=== PATIENT | female | born 1985 | race Asian ===

== ENCOUNTER 2019-10-26 19:29 | Emergency (ER) | payer BC ==
[~2019-10-26] VITALS: Ht 162.6 cm; Wt 49.9 kg
[2019-10-26 19:29] VITALS: BP 108/65
--- NOTE | 2019-10-26 19:31 | NUR ---
ED Nurse Note: Patient was BIBA from home due to flu like symptoms, headache, sore throat, fever. Patient temp 99.8 at triage. Patient presented calm, AAO x4, VSS at this time.
--- NOTE | 2019-10-26 19:54 | Emergency Room Report ---
History of Present Illness General Chief Complaint: Flu Like Symptoms Source: Patient Present Illness HPI 33-year-old female presents to the emergency department concern for worsening fevers and generalized body aches after finishing course of antibiotics with no improvement of her symptoms. Initial symptoms were dysuria and bladder pressure. Was placed onto oral abx: Macrobid. Patient states that her dysuria resolved however she then began having 8/10 in severity body aches and high fevers of 102 for example. Pt .then was rx'd Ciprofloxacin. Pt. was concerned, called her PMD whom told her not to start the Cipro but to report to ED for evaluation. Pt. reports slight cough. Denies ST, Neck pain or stiffness. She reports having a dull 4/10 in severity generalized FIGUEROA. Denies N/V/C. She states that early last week she did have one episode of diarrhea that was isolated and did not return. She has been taking Tylenol and Motrin every 4 hours for fevers. She denies recent travel or ill contacts. Patient states she did not receive this years flu vaccine. Denies abdominal pain or tenderness. She reports severe weakness and fatigue. Allergies: Coded Allergies: GENTAMICIN (Verified Allergy, Mild, 10/26/19) Patient History Past Medical History: see triage record Past Surgical History: none Pertinent Family History: none Now: No Reviewed Nursing Documentation: PMH: Agreed; PSxH: Agreed Nursing Documentation-PMH Past Medical History: No Stated History Review of Systems All Other Systems: negative except mentioned in HPI Physical Exam Vital Signs Date Time Temp Pulse Resp B/P (MAP) Pulse Ox O2 Delivery O2 Flow Rate FiO2 10/26/19 19:11 99.0 72 16 108/65 (79) 99 Room Air Sp02 EP Interpretation: reviewed, normal General Appearance: alert, GCS 15, non-toxic, mild distress, lethargic, thin Head: normocephalic, atraumatic Eyes: bilateral eye normal inspection, bilateral eye PERRL ENT: hearing grossly normal, normal voice Neck: full range of motion, no meningismus, no bony tend Respiratory: chest non-tender, lungs clear, normal breath sounds, no respiratory distress, no wheezing, speaking full sentences Cardiovascular #1: regular rate, rhythm, normal capillary refill Gastrointestinal: normal bowel sounds, non tender, soft, non-distended, no guarding, other Genitourinary: normal inspection, no CVA tenderness Musculoskeletal: back normal, normal range of motion, non-tender, other - Pt. is too weak to walk without assistance Neurologic: alert, motor strength/tone normal, oriented x3, sensory intact, responsive, speech normal Psychiatric: judgement/insight normal Skin: no rash, normal color Medical Decision Making PA Attestation Dr. Pinto is my supervising Physician whom patient management has been discussed with. Diagnostic Impression: Primary Impression: Acute viral syndrome Additional Impression: Fever and chills ER Course 33-year-old female presents to the emergency department concern for worsening fevers and generalized body aches after finishing course of antibiotics with no improvement of her symptoms. Initial symptoms were dysuria and bladder pressure. Was placed onto oral abx: Macrobid. Patient states that her dysuria resolved however she then began having 8/10 in severity body aches and high fevers of 102 for example. Pt .then was rx'd Ciprofloxacin. Pt. was concerned, called her PMD whom told her not to start the Cipro but to report to ED for evaluation. Pt. reports slight cough. Denies ST, Neck pain or stiffness. She reports having a dull 4/10 in severity generalized FIGUEROA. Denies N/V/C. She states that early last week she did have one episode of diarrhea that was isolated and did not return. She has been taking Tylenol and Motrin every 4 hours for fevers. She denies recent travel or ill contacts. Patient states she did not receive this years flu vaccine. Denies abdominal pain or tenderness. She reports severe weakness and fatigue. Ddx considered but are not limited to URI, pneumonia, PE, strep pharyngitis, meningitis, influenza, OM/OE just to name a few, UTI pyelonephritis, meningitis/ encephalitis just to name a few Vital signs: Pt. is non-tachycardic and afebrile, the remaining VS are WNL H&PE are most consistent with Viral Syndrome suspicious for Influenza will treat clinically - no meningeal signs, Lungs are clear and oropharynx is not involved, no evidence of bacterial infection at this time. ORDERS: -CBC: WNL -CMP: WNL -Lactic Acid: WNL -Influenza A & B: Negative -UA: WNL ED INTERVENTIONS: - 1 Liter NS Bolus - Toradol IV 15mg - 5mg Reglan IV - 25mg Benadryl IV This patient did demonstrate moderate amount of worry regarding if fevers return when she is at home. Discussed proper fever control with Tylenol and Motrin intermittently every 4 hours. Also discussed 100.4 as definition of fever. I went over this patient's laboratory results with her and explained how there is no evidence of infection in the urine at this time. Her laboratory work up was unremarkable -I do not identify an emergent condition at this time. With current presentation , pt. is stable for close outpatient follow up and conservative treatment. D/ w pt. to return promptly to ED with worsening or new symptoms.- Pt. verbalizes' understanding and agreement with proposed treatment plan.proposed treatment plan. DISCHARGE: At this time pt. is stable for d/c to home. Will provide printed patient care instructions, and any necessary prescriptions. Care plan and follow up instructions have been discussed with the patient prior to discharge. Labs Test 10/26/19 20:15 10/26/19 21:15 White Blood Count 10.8 K/UL (4.8-10.8) Red Blood Count 4.72 M/UL (4.20-5.40) Hemoglobin 13.8 G/DL (12.0-16.0) Hematocrit 45.3 % (37.0-47.0) Mean Corpuscular Volume 96 FL (80-99) Mean Corpuscular Hemoglobin 29.3 PG (27.0-31.0) Mean Corpuscular Hemoglobin Concent 30.5 G/DL (32.0-36.0) Red Cell Distribution Width 11.8 % (11.6-14.8) Platelet Count 298 K/UL (150-450) Mean Platelet Volume 7.4 FL (6.5-10.1) Neutrophils (%) (Auto) 87.7 % (45.0-75.0) Lymphocytes (%) (Auto) 7.3 % (20.0-45.0) Monocytes (%) (Auto) 4.0 % (1.0-10.0) Eosinophils (%) (Auto) 0.1 % (0.0-3.0) Basophils (%) (Auto) 0.9 % (0.0-2.0) Sodium Level 135 MMOL/L (136-145) Potassium Level 3.7 MMOL/L (3.5-5.1) Chloride Level 101 MMOL/L (98-107) Carbon Dioxide Level 26 MMOL/L (21-32) Blood Urea Nitrogen 9 mg/dL (7-18) Creatinine 0.7 MG/DL (0.55-1.30) Estimat Glomerular Filtration Rate > 60 mL/min (>60) Glucose Level 107 MG/DL (74-106) Lactic Acid Level 1.10 mmol/L (0.4-2.0) Calcium Level 9.9 MG/DL (8.5-10.1) Total Bilirubin 1.1 MG/DL (0.2-1.0) Direct Bilirubin 0.1 MG/DL (0.0-0.3) Aspartate Amino Transf (AST/SGOT) 19 U/L (15-37) Alanine Aminotransferase (ALT/SGPT) 19 U/L (12-78) Alkaline Phosphatase 59 U/L (46-116) Total Protein 8.8 G/DL (6.4-8.2) Albumin 4.3 G/DL (3.4-5.0) Globulin 4.5 g/dL Albumin/Globulin Ratio 1.0 (1.0-2.7) Urine Color Yellow Urine Appearance Clear Urine pH 6 (4.5-8.0) Urine Specific Finley 1.010 (1.005-1.035) Urine Protein Negative (NEGATIVE) Urine Glucose (UA) Negative (NEGATIVE) Urine Ketones 3+ (NEGATIVE) Urine Blood Negative (NEGATIVE) Urine Nitrite Negative (NEGATIVE) Urine Bilirubin Negative (NEGATIVE) Urine Urobilinogen Normal MG/DL (0.0-1.0) Urine Leukocyte Esterase Negative (NEGATIVE) Chest X-Ray Diagnostic Results Chest X-Ray Diagnostic Results : Chest X-Ray Ordered: Yes # of Views/Limited/Complete: 1 View Indication: Shortness of Breath EP Interpretation: Yes PA Xray: Interpretation reviewed, by supervising MD, and agrees with findings. Interpretation: no consolidation, no effusion, no pneumothorax, no acute cardiopulmonary disease Impression: No acute disease Electronically Signed by: Vicenta Chavez PA-C Last Vital Signs Date Time Temp Pulse Resp B/P (MAP) Pulse Ox O2 Delivery O2 Flow Rate FiO2 10/26/19 19:29 72 16 Room Air 10/26/19 19:29 99.0 108/65 99 Status: improved Disposition: HOME, SELF-CARE Condition: Stable Scripts Ibuprofen* (MOTRIN*) 600 Mg Tablet 600 MG ORAL THREE TIMES A DAY, #30 TAB 0 Refills Prov: Vicenta Chavez 10/26/19 Acetaminophen* (TYLENOL EXTRA STRENGTH*) 500 Mg Tablet 500 MG ORAL Q6H PRN for Mild Pain/Temp > 100.5, #30 TAB 0 Refills Prov: Vicenta Chavez 10/26/19 Patient Instructions: Fever, Adult Additional Instructions: Take medications as directed. Follow up with a Primary Care Provider within 3, even if your symptoms have resolved. Return sooner to ED if new symptoms occur, or current symptoms become worse. - Please note that this Emergency Department Report was dictated using [email or web address] m[employer] technology software, occasionally this can lead to erroneous entry secondary to interpretation by the dictation equipment. Vicenta Chavez Oct 26, 2019 19:54
[2019-10-26] MEDS ORDERED: Ketorolac 30mg Inj IV ONE (20:15)
[2019-10-26 20:27] LABS: HEMATOCRIT 45.3 % (37.0-47.0); HEMOGLOBIN 13.8 G/DL (12.0-16.0); MEAN CORPUSCULAR VOLUME 96 FL (80-99); PLATELET COUNT 298 K/UL (150-450); RED BLOOD COUNT 4.72 M/UL (4.20-5.40); RED CELL DISTRIBUTION WIDTH 11.8 % (11.6-14.8); WHITE BLOOD COUNT 10.8 K/UL (4.8-10.8)
[2019-10-26 20:38] LABS: BASOPHILS % (AUTO) 0.9 % (0.0-2.0); EOSINOPHILS % (AUTO) 0.1 % (0.0-3.0); LYMPHOCYTES % (AUTO) 7.3 % (20.0-45.0); NEUTROPHILS % (AUTO) 87.7 % (45.0-75.0)
[2019-10-26 21:22] LABS: ALANINE AMINOTRANSFERASE 19 U/L (12-78); ALBUMIN 4.3 G/DL (3.4-5.0); ALKALINE PHOSPHATASE 59 U/L (46-116); ASPARTATE AMINO TRANSFERASE 19 U/L (15-37); BILIRUBIN,TOTAL 1.1 MG/DL (0.2-1.0); BLOOD UREA NITROGEN 9 mg/dL (7-18); CALCIUM 9.9 MG/DL (8.5-10.1); CARBON DIOXIDE 26 MMOL/L (21-32); CREATININE 0.7 MG/DL (0.55-1.30)
[2019-10-26 21:38] LABS: BILIRUBIN,DIRECT 0.1 MG/DL (0.0-0.3); CHLORIDE 101 MMOL/L (98-107); POTASSIUM 3.7 MMOL/L (3.5-5.1); SODIUM 135 MMOL/L (136-145)
[2019-10-26 21:45] LABS: APPEARANCE,URINE CLEAR; BILIRUBIN, URINE NEGATIVE (NEGATIVE); GLUCOSE, URINE (UA) NEGATIVE (NEGATIVE); KETONES,URINE 3+ (NEGATIVE); LEUKOCYTE ESTERASE ,URINE NEGATIVE (NEGATIVE); NITRITE,URINE NEGATIVE (NEGATIVE); PH,URINE 6 (4.5-8.0); PROTEIN,URINE NEGATIVE (NEGATIVE); UROBILINOGEN,URINE NORMAL MG/DL (0.0-1.0)
[2019-10-26 21:46] LABS: COLOR,URINE YELLOW
[2019-10-26 22:25] VITALS: BP 110/67
[2019-10-26] MEDS ORDERED: Metoclopramide 10mg/2ml Inj IVP ONE (22:30)
[2019-10-26] MEDS ORDERED: DiphenhydrAMINE 50mg/ml Inj IVP ONE (22:30)
[2019-10-26] MEDS ORDERED: TYLENOL EXTRA500 MG ORAL (22:42)
[2019-10-26] MEDS ORDERED: IBUPROFEN600 MG ORAL (22:42)
[2019-10-26 23:26] VITALS: BP 110/67
--- NOTE | 2019-10-26 23:26 | NUR ---
ED Nurse Note: Pt cleared by health care Provider for discharge. DC instructions/prescription was given and explained to pt and verbalized understanding of teachings. All medical deviecs such as ID band removed. Pt is AAO x4, ambulatory and left with all personal belongings.
--- NOTE | 2019-10-27 14:01 | Diagnostic Imaging Report ---
Indication: Chest pain Comparison: None A single view chest radiograph was obtained. Findings: Cardiomediastinal appearance is within normal limits for age. The lungs are clear. Pulmonary vascularity is appropriate. The diaphragmatic contour is smooth and costophrenic angles are sharp. No pleural effusions are identified. The bones are unremarkable. Impression: No acute findings
== END 2019-10-26 23:27 | disposition home or self-care (01) ==
LOC: EDBD 19:29 → EMR 19:55
DX: B34.9 Viral infection, unspecified (principal); R50.9 Fever, unspecified; Z88.8 Allergy status to other drugs, medicaments and biological substances
CPT/HCPCS: 36415; 71045; 80053; 81003; 82248; 83605; 85025; 86710; 96361; 96374; 96375; 99284; J1200; J1885; J2765; J7030